=== PATIENT | male | born 1970 ===

== ENCOUNTER 2019-04-08 14:17 | Emergency (ER) | payer BC ==
[2019-04-08 14:25] VITALS: BP 130/77
--- NOTE | 2019-04-08 14:48 | UC ---
Abdominal Pain Male HPI - HPI Summary HPI Summary: 48-year-old male presents with 2 day history of right lower quadrant pain which has progressively worsened. States the pain was initially mild but woke him from his sleep this morning around 5 AM. Pain worsens with palpation and movement. Nonradiating. Developed some mild nausea today. States over the past few days he has noted that he has had to strain to have a bowel movement. Last bowel movement was 2-3 hours prior to arrival. States was a normal brown formed stool. Denies fever, chills, vomiting, diarrhea, blood in stool, melena , flank pain, dysuria, frequency, urgency, or hematuria. - History of Current Complaint Chief Complaint: UCAbdominalPain Stated Complaint: ABDOMINAL PAIN Time Seen by Provider: 04/08/19 14:37 Hx Obtained From: Patient Pain Intensity: 2 - Allergies/Home Medications Allergies/Adverse Reactions: Allergies Allergy/AdvReac Type Severity Reaction Status Date / Time No Known Allergies Allergy Verified 04/08/19 14:25 Home Medications: Home Medications Acetaminophen/Caffeine [Excedrin Tension Headache Cplt] 1 each PO ONCE 04/08/19 [History Confirmed 04/08/19] Cholecalciferol TAB* [Vitamin D TAB*] 1,000 unit PO DAILY 04/08/19 [History Confirmed 04/08/19] Esomeprazole(NF) [NexIUM(NF)] 40 mg PO DAILY 04/08/19 [History Confirmed ] Montelukast Sodium TAB* [Singulair TAB*] 10 mg PO DAILY 04/08/19 [History Confirmed 04/08/19] Multivitamins/Minerals TAB* [Theragran/minerals TAB*] 1 tab PO DAILY 04/08/19 [ History Confirmed 04/08/19] Simethicone TAB* [Mylicon TAB*] 80 mg PO AC PRN 04/08/19 [History Confirmed 09/17] Tadalafil 2.5 mg PO DAILY 04/08/19 [History Confirmed 04/08/19] Tolterodine (NF) [Detrol (NF)] 1 mg PO DAILY 04/08/19 [History Confirmed ] PMH/Surg Hx/FS Hx/Imm Hx Previously Healthy: Yes GI/ History: Gastroesophageal Reflux, Other - Overactive bladder - Surgical History Surgery Procedure, Year, and Place: tonsillectomy - Family History Known Family History: Positive: Non-Contributory - Social History Occupation: Employed Full-time Lives: With Family Alcohol Use: Occasionally Substance Use Type: None Smoking Status (MU): Light Every Day Tobacco Smoker Type: eCigarettes Review of Systems All Other Systems Reviewed And Are Negative: Yes Constitutional: Negative: Fever, Chills Skin: Negative: Rash Respiratory: Negative: Shortness Of Breath, Cough Cardiovascular: Negative: Palpitations, Chest Pain Gastrointestinal: Positive: Abdominal Pain, Nausea. Negative: Vomiting, Diarrhea Genitourinary: Negative: Dysuria, Hematuria, Frequency, Urgency, Vaginal/Penile Discharge Musculoskeletal: Positive: Negative Neurological: Positive: Negative Is Patient Immunocompromised?: No Physical Exam - Summary Physical Exam Summary: GENERAL APPEARANCE: Well developed, well nourished, alert and cooperative, and appears to be in no acute distress. EYES: Conjunctiva clear. No drainage. EARS: External auditory canals and tympanic membranes clear, hearing grossly intact. NOSE: No nasal discharge. THROAT: Pharynx normal. No tonsilar inflammation, swelling, exudate, or lesions. Uvula midline. Oral cavity normal. Teeth and gingiva in good general condition. NECK: Neck supple, non-tender without lymphadenopathy. CARDIAC: Normal S1 and S2. No S3, S4 or murmurs. Rhythm is regular. There is no peripheral edema, cyanosis or pallor. Extremities are warm and well perfused. Capillary refill is less than 2 seconds. Peripheral pulses intact. LUNGS: Clear to auscultation without rales, rhonchi, wheezing or diminished breath sounds. ABDOMEN: Positive bowel sounds. Soft, nondistended. Significant RLQ pain with guarding. No masses or hepatosplenomegally. No CVA tenderness. MUSKULOSKELETAL: ROM intact to all extremities. No joint erythema or tenderness. Normal muscular development. Normal gait. SKIN: Skin normal color, texture and turgor with no lesions or eruptions. Triage Information Reviewed: Yes Vital Signs: Initial Vital Signs Temp 98.8 F 04/08/19 14:22 Pulse 96 04/08/19 14:22 Resp 18 04/08/19 14:22 BP 130/77 04/08/19 14:22 Pulse Ox 100 04/08/19 14:22 Vital Signs Reviewed: Yes Abd Pain Male Course/Dx - Course Course Of Treatment: 48-year-old male presents with 2 day history of right lower quadrant pain which has progressively worsened. States the pain was initially mild but woke him from his sleep this morning around 5 AM. Pain worsens with palpation and movement. Nonradiating. Developed some mild nausea today. States over the past few days he has noted that he has had to strain to have a bowel movement. Last bowel movement was 2-3 hours prior to arrival. States was a normal brown formed stool. Denies fever, chills, vomiting, diarrhea, blood in stool, melena , flank pain, dysuria, frequency, urgency, or hematuria. Afebrile. Mildly hypertensive otherwise vital signs stable. Exam revealed exquisite tenderness to the right lower quadrant with palpation but otherwise unremarkable. Based on his history and exam I am recommending that he be evaluated in the emergency room at this time to rule out appendicitis. Patient is agreeable to this and is electing to transport via private vehicle. - Differential Dx/Clinical Impression Differential Diagnosis/HQI/PQRI: Appendicitis, Gall Bladder Disease, Urinary Tract Infection Provider Diagnosis: RLQ abdominal pain - Physician Notification/Consults Discussed Patient Care With: RICARDO Young - [facility] ED Time Discussed With Above Provider: 15:00 Instructed by Provider To: MD Will See In ED Discharge - Sign-Out/Discharge Documenting (check all that apply): Patient Departure All imaging exams completed and their final reports reviewed: No Studies - Discharge Plan Condition: Stable Disposition: HOME-RECOMMEND TO ED Referrals: No Primary Care Phys,NOPCP [Primary Care Provider] - Additional Instructions: Based on your history and exam I am recommending that you be evaluated in the emergency room at this time for your right lower quadrant pain. Go directly to the [facility] emergency room. Do no eat or drink anything until after you have been evaluated. - Billing Disposition and Condition Condition: STABLE Disposition: Home-Recommend to ED
== END 2019-04-08 15:00 | disposition home health service (06) ==
LOC: UCCORT 14:17
DX: R10.31 Right lower quadrant pain (principal); G21.9 Secondary parkinsonism, unspecified; F17.210 Nicotine dependence, cigarettes, uncomplicated
CPT/HCPCS: 99202; G0463